=== PATIENT | female | born 2000 | race Caucasian/White ===

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

== ENCOUNTER 2020-11-04 09:59 | Emergency (ER) | payer MEDICAID, OTHER ==
[~2020-11-04 09:59] MED LIST changes: +OMEP20CA16 PO; -OMEP20CA9 PO
[2020-11-04] MEDS ORDERED: DEXAMETHASONE 4 MG TABLET ONE (12:07)
[2020-11-04 12:12] LABS: BILIRUBIN,URINE SMALL (NEG); CLARITY,URINE CLOUDY; COLOR,URINE AMBER; NITRITE,URINE POSITIVE (NEG); PH,URINE 5.5 (<5.0-8.0); PROTEIN,URINE NEGATIVE (NEG-TRACE)
[2020-11-04 12:15] LABS: BACTERIA,URINE MANY /HPF (0-FEW)
[2020-11-04] MEDS ORDERED: DEXAMETHASONE 4 MG TABLET PO ONE (12:15)
[2020-11-04] MEDS ORDERED: ACETAMINOPHEN 325 MG TABLET. PO ONE (12:15)
== END 2020-11-04 12:15 | disposition home or self-care (01) ==
LOC: ER 09:59
DX: O23.41 Unspecified infection of urinary tract in pregnancy, first trimester (principal); J02.9 Acute pharyngitis, unspecified; R05 Cough; Z3A.01 Less than 8 weeks gestation of pregnancy
CPT/HCPCS: 81001; 81025; 87070; 87077; 87086; 87186; 87880; 99283

== ENCOUNTER 2020-11-11 14:09 | Emergency (ER) | payer MEDICAID ==
[~2020-11-11] VITALS: Ht 162.6 cm; Wt 76.0 kg
[2020-11-11 14:42] LABS: BILIRUBIN,URINE NEGATIVE (NEG); CLARITY,URINE CLOUDY; COLOR,URINE YELLOW; NITRITE,URINE POSITIVE (NEG); PH,URINE 5.5 (<5.0-8.0); PROTEIN,URINE NEGATIVE (NEG-TRACE); UROBILINOGEN,URINE 0.2 mg/dL (0.2 mg/dL)
[2020-11-11 14:50] LABS: BACTERIA,URINE MANY /HPF (0-FEW)
[2020-11-11 14:51] LABS: RBC,URINE OCC /HPF (0-2)
[2020-11-11 14:54] VITALS: BP 116/52
[2020-11-11 15:26] LABS: BASO # 0.1 x10^3/uL (0.0-0.2); BASO % 1 % (0-3); EOS # 0.2 x10^3/uL (0.0-0.7); EOS % 3 % (0-3); HEMATOCRIT 39.7 % (36.0-47.0); HEMOGLOBIN 13.5 g/dL (12.0-15.5); LYMPH # 1.9 x10^3/uL (1.0-4.8); LYMPH % 25 % (24-48); MEAN CORPUSCULAR HEMOGLOBIN 30 pg (25-35); MEAN CORPUSCULAR HGB CONC 34 g/dL (31-37); MEAN CORPUSCULAR VOLUME 88 fL (79-100); MONO # 0.5 x10^3/uL (0.0-1.1); MONO % 6 % (0-9); NEUT % 66 % (31-73); PLATELET COUNT 253 x10^3/uL (140-400); RED BLOOD COUNT 4.51 x10^6/uL (3.50-5.40); RED CELL DISTRIBUTION WIDTH 14.2 % (11.5-14.5); WHITE BLOOD COUNT 7.6 x10^3/uL (4.0-11.0)
[2020-11-11 15:37] LABS: CALCIUM 8.7 mg/dL (8.5-10.1); CREATININE 1.2 mg/dL (0.6-1.0); GFR 56.7; POTASSIUM 3.8 mmol/L (3.5-5.1)
[2020-11-11 15:42] LABS: ALBUMIN 3.9 g/dL (3.4-5.0); ALBUMIN/GLOBULIN RATIO 1.2 (1.0-1.7); TOTAL BILIRUBIN 0.4 mg/dL (0.2-1.0); TOTAL PROTEIN 7.2 g/dL (6.4-8.2)
--- NOTE | 2020-11-11 15:52 | PHYS DOC ---
Past Medical History Past Medical History: Other Additional Past Medical Histor: TRISOMY 18 (REGINO OSBORNE APRN) Past Surgical History: No Surgical History (REGINO OSBORNE APRN) Smoking Status: Never Smoker Alcohol Use: None Drug Use: None (REGINO OSBORNE APRN) Attending Signature I have participated in the care of this patient and I have reviewed and agree with all pertinent clinical information above including history, exam, and recommendations. (JENNIFER GUY DO) General Adult EDM: Chief Complaint: VAGINAL PROBLEM HPI: HPI: Patient is a 20 year old female who presents with low intermittent abdominal cramping. She states that 2 to 3 months back she had a miscarriage and was seen at [facility] but never followed up with any care after that. She states that she was here on November 04 and was given antibiotic for UTI. She states she is not currently on any medication at this time. States she is having vaginal itching and pain with sex but she has had that for years. She denies any vag inal bleeding, fever, nausea, vomiting, diarrhea, back pain or abnormal vaginal discharge. She states she would like to be checked for STDs and treated today. She currently has a GENERAL MERCHANDISE SALESPERSON appointment for November 23. At this time she denies any pain. (REGINO OSBORNE EMPLOYMENT SERVICES DIRECTOR) Review of Systems: Review of Systems: Constitutional: Denies fever or chills. [] Eyes: Denies change in visual acuity. [] HENT: Denies nasal congestion or sore throat. [] Respiratory: Denies cough or shortness of breath. [] Cardiovascular: Denies chest pain or edema. [] GI: + abdominal pain, denies nausea, vomiting, bloody stools or diarrhea. [] : Denies dysuria. + Concern for sexually transmitted disease Musculoskeletal: Denies back pain or joint pain. [] Integument: Denies rash. [] Neurologic: Denies headache, focal weakness or sensory changes. [] Endocrine: Denies polyuria or polydipsia. [] Lymphatic: Denies swollen glands. [] Psychiatric: Denies depression or anxiety. [] (REGINO OSBORNE APRN) Heart Score: C/O Chest Pain: No Risk Factors: Risk Factors: DM, Current or recent (<one month) smoker, HTN, HLP, family history of CAD, obesity. Risk Scores: Score 0 - 3: 2.5% MACE over next 6 weeks - Discharge Home Score 4 - 6: 20.3% MACE over next 6 weeks - Admit for Clinical Observation Score 7 - 10: 72.7% MACE over next 6 weeks - Early Invasive Strategies ([facility] DIRECT[facility]) Allergies: Allergies: Allergies Coded Allergies Type Severity Reaction Last Updated Verified No Known Drug Allergies 01/21/18 No ([facility]) Physical Exam: PE: Constitutional: Well developed, well nourished, no acute distress, non-toxic appearance. [] HENT: Normocephalic, atraumatic, bilateral external ears normal, oropharynx moist, no oral exudates, nose normal. [] Eyes: PERRLA, EOMI, conjunctiva normal, no discharge. [] Neck: Normal range of motion, no tenderness, supple, no stridor. [] Cardiovascular:Heart rate regular rhythm, no murmur [] Lungs & Thorax: Bilateral breath sounds clear to auscultation [] Abdomen: Bowel sounds normal, soft, no tenderness, no masses, no pulsatile masses. [] Skin: Warm, dry, no erythema, no rash. [] Back: No tenderness, no CVA tenderness. [] Extremities: No tenderness, no cyanosis, no clubbing, ROM intact, no edema. [] Neurologic: Alert and oriented X 3, normal motor function, normal sensory function, no focal deficits noted. [] Psychologic: Affect normal, judgement normal, mood normal. [] Normal physical exam ([facility]) Current Patient Data: Labs: Laboratory Tests Test 11/11/20 14:30 11/11/20 14:38 11/11/20 15:17 Urine Collection Type Unknown Urine Color Yellow Urine Clarity Cloudy Urine pH 5.5 (<5.0-8.0) Urine Specific [place] >=1.030 (1.000-1.030) Urine Protein Negative mg/dL (NEG-TRACE) Urine Glucose (UA) Negative mg/dL (NEG) Urine Ketones (Stick) Negative mg/dL (NEG) Urine Blood Moderate (NEG) Urine Nitrite Positive (NEG) Urine Bilirubin Negative (NEG) Urine Urobilinogen Dipstick 0.2 mg/dL (0.2 mg/dL) Urine Leukocyte Esterase Moderate (NEG) Urine RBC Occ /HPF (0-2) Urine WBC 11-20 /HPF (0-4) Urine Squamous Epithelial Cells Many /LPF Urine Bacteria Many /HPF (0-FEW) Urine Mucus Marked /LPF POC Urine HCG, Qualitative Hcg positive (Negative) White Blood Count 7.6 x10^3/uL (4.0-11.0) Red Blood Count 4.51 x10^6/uL (3.50-5.40) Hemoglobin 13.5 g/dL (12.0-15.5) Hematocrit 39.7 % (36.0-47.0) Mean Corpuscular Volume 88 fL (79-100) Mean Corpuscular Hemoglobin 30 pg (25-35) Mean Corpuscular Hemoglobin Concent 34 g/dL (31-37) Red Cell Distribution Width 14.2 % (11.5-14.5) Platelet Count 253 x10^3/uL (140-400) Neutrophils (%) (Auto) 66 % (31-73) Lymphocytes (%) (Auto) 25 % (24-48) Monocytes (%) (Auto) 6 % (0-9) Eosinophils (%) (Auto) 3 % (0-3) Basophils (%) (Auto) 1 % (0-3) Neutrophils # (Auto) 5.0 x10^3/uL (1.8-7.7) Lymphocytes # (Auto) 1.9 x10^3/uL (1.0-4.8) Monocytes # (Auto) 0.5 x10^3/uL (0.0-1.1) Eosinophils # (Auto) 0.2 x10^3/uL (0.0-0.7) Basophils # (Auto) 0.1 x10^3/uL (0.0-0.2) Sodium Level 141 mmol/L (136-145) Potassium Level 3.8 mmol/L (3.5-5.1) Chloride Level 106 mmol/L (98-107) Carbon Dioxide Level 25 mmol/L (21-32) Anion Gap 10 (6-14) Blood Urea Nitrogen 11 mg/dL (7-20) Creatinine 1.2 mg/dL (0.6-1.0) H Estimated GFR (Cockcroft-Gault) 56.7 BUN/Creatinine Ratio 9 (6-20) Glucose Level 92 mg/dL (70-99) Calcium Level 8.7 mg/dL (8.5-10.1) Total Bilirubin 0.4 mg/dL (0.2-1.0) Aspartate Amino Transferase (AST) 16 U/L (15-37) Alanine Aminotransferase (ALT) 27 U/L (14-59) Alkaline Phosphatase 81 U/L (46-116) Total Protein 7.2 g/dL (6.4-8.2) Albumin 3.9 g/dL (3.4-5.0) Albumin/Globulin Ratio 1.2 (1.0-1.7) Lipase 76 U/L (73-393) Laboratory Tests 11/11/20 15:17 Laboratory Tests 11/11/20 15:17 Vital Signs: Vital Signs Date Time Temp Pulse Resp B/P (MAP) Pulse Ox O2 Delivery O2 Flow Rate FiO2 11/11/20 14:54 98.4 89 18 116/52 (73) 100 Room Air 98.4 (REGINO OSBORNE APRN) EKG: EKG: [] (REGINO OSBORNE APRN) Radiology/Procedures: Radiology/Procedures: [] Impression: [facility] [id number] [place] [id number] IMAGING REPORT Signed PATIENT: BLADIMIR PHOENIX MACCOUNT: [id number] : 2000 LOCATION: ER AGE: 20 SEX: F EXAM STATUS: REG ER ORD. PHYSICIAN: REGINO OSBORNE APRN REASON: abdominal pain in PROCEDURE: OB <14 WKS W/TV Study: US OB <14 WKS +TV DATE: 11/11/2020 3:45 PM INDICATION: Abdominal pain. COMPARISON: None during this gestation. TECHNIQUE: Transabdominal and transvaginal ultrasonography of the pelvis was performed. Color Doppler and duplex were utilized as appropriate. FINDINGS: The uterus measures 8.5 x 5.3 x 4.4 cm. The right ovary measures 4 x 2.5 x 2.7 cm and the left ovary 2.8 x 3 x 2.2 cm. Small cystic focus within the endometrium measuring 0.27 cm. This would vitaly espond to an estimated gestational age of 5 weeks 0 days. No yolk sac or pole is identified. Endometrial thickness measured at 1.1 cm. Small amount of fluid within the endometrial canal with no associated vascularity. A portion of fluid may be mildly complex. No focal uterine parenchymal abnormality. No complex cyst or mass at either adnexa. Several follicles. Doppler flow is maintained to both ovaries. Small amount of simple appearing free fluid within the deep pelvis. IMPRESSION: Small cystic focus within the endometrium measuring 0.27 cm which may represent a gestational sac. Estimated gestational age would be 5 weeks 0 days. There is a small amount of fluid within the endometrial canal which appears slightly complex and could represent blood products. No findings at either adnexa concerning for an ectopic. Correlate with beta hCG and last menstrual period to help determine if the findings are within normal limits. Overall the result of the exam is indeterminate and short-term follow-up is needed in 2 weeks to determine the trajectory of the . Electronically signed by: DEBO JOHNSON MD (11/11/2020 4:32 PM) [facility] DICTATED and SIGNED BY: DEBO JOHNSON MD DATE: 11/11/20 [id number] 0 (REGINO OSBORNE APRN) Course & Med Decision Making: Course & Med Decision Making Pertinent Labs and Imaging studies reviewed. (See chart for details) See HPI. Alert and oriented x4. Ambulatory with steady gait. Skin pink warm dry. Abdomen is soft and nontender. Speaks in full clear sentences. Pelvic Exam: Scientific Software Engineer present Abdomen: Nontender External Genitalia: Normal Skin Speculum: Normal vaginal mucosa, white cervical discharge Bimanual: No adnexal masses or tenderness, No CMT [] (REGINO OSBORNE APRN) Dragon Disclaimer: Dragon Disclaimer: This electronic medical record was generated, in whole or in part, using a voice recognition dictation system. (REGINO OSBORNE APRN) Departure Departure Impression: Primary Impression: Urinary tract infection Qualified Codes: N39.0 - Urinary tract infection, site not specified Additional Impressions: Qualified Codes: Z3A.01 - Less than 8 weeks gestation of Abdominal pain affecting Disposition: HOME / SELF CARE / HOMELESS Condition: STABLE Referrals: NO PCP (PCP) Patient Instructions: Abdominal Pain During , - Urinary Tract Infection Additional Instructions: Take medication as prescribed until it is done and at with food. Follow-up with your OB doctor as scheduled. Drink plenty of fluids. The chlamydia and gonorrhea that you were treated for today will result in 48 hours and you will be called only if something is positive. Scripts Nitrofurantoin Monohyd/M-Cryst (MACROBID 100 MG CAPSULE) 100 Mg Capsule 1 CAP PO BID for 7 Days, #14 CAP 0 Refills Prov: REGINO OSBORNE APRN 11/11/20 REGINO OSBORNE APRN Nov 11, 2020 15:52 JENNIFER GUY DO Nov 11, 2020 17:02
[2020-11-11] MEDS ORDERED: cefTRIAXone IM 500 MG VIAL. IM ONE (16:00)
[2020-11-11] MEDS ORDERED: AZITHROMYCIN 250 MG TABLET. PO ONE (16:00)
[2020-11-11] MEDS ORDERED: cefTRIAXone IV Push 1 GM VIAL. IVP ONE (16:15)
--- NOTE | 2020-11-11 16:34 | RAD ---
Study: US OB <14 WKS +TV DATE: 11/11/2020 3:45 PM INDICATION: Abdominal pain. COMPARISON: None during this gestation. TECHNIQUE: Transabdominal and transvaginal ultrasonography of the pelvis was performed. Color Doppler and duplex were utilized as appropriate. FINDINGS: The uterus measures 8.5 x 5.3 x 4.4 cm. The right ovary measures 4 x 2.5 x 2.7 cm and the left ovary 2.8 x 3 x 2.2 cm. Small cystic focus within the endometrium measuring 0.27 cm. This would correspond to an estimated ge stational age of 5 weeks 0 days. No yolk sac or pole is identified. Endometrial thickness measu red at 1.1 cm. Small amount of fluid within the endometrial canal with no associated vascularity. A p ortion of fluid may be mildly complex. No focal uterine parenchymal abnormality. No complex cyst or mass at either adnexa. Several follicles . Doppler flow is maintained to both ovaries. Small amount of simple appearing free fluid within the deep pelvis. IMPRESSION: Small cystic focus within the endometrium measuring 0.27 cm which may represent a gestational sac. Es timated gestational age would be 5 weeks 0 days. There is a small amount of fluid within the endometr ial canal which appears slightly complex and could represent blood products. No findings at either ad nexa concerning for an ectopic. Correlate with beta hCG and last menstrual period to help determine i f the findings are within normal limits. Overall the result of the exam is indeterminate and short-te rm follow-up is needed in 2 weeks to determine the trajectory of the . Electronically signed by: DEBO JOHNSON MD (11/11/2020 4:32 PM) [facility]
[2020-11-11] MEDS ORDERED: NITR100C62 PO (16:53)
[2020-11-12 14:12] LABS: GC PROBE Negative (Negative)
== END 2020-11-11 17:52 | disposition home or self-care (01) ==
LOC: ER 14:09
DX: O23.41 Unspecified infection of urinary tract in pregnancy, first trimester (principal); Z3A.08 8 weeks gestation of pregnancy
CPT/HCPCS: 36415; 76801; 76817; 80053; 81001; 81025; 83690; 84702; 85025; 86850; 86900; 86901; 87086; 87491; 87591; 96374; 99284; J0696; Q0111

== ENCOUNTER 2020-11-20 15:30 | Emergency (ER) | payer MEDICAID ==
[~2020-11-20] VITALS: Ht 162.6 cm; Wt 77.2 kg
[2020-11-20 16:00] LABS: BILIRUBIN,URINE NEGATIVE (NEG); CLARITY,URINE CLOUDY; COLOR,URINE YELLOW; NITRITE,URINE NEGATIVE (NEG); PH,URINE 5.5 (<5.0-8.0); PROTEIN,URINE NEGATIVE (NEG-TRACE); UROBILINOGEN,URINE 0.2 mg/dL (0.2 mg/dL)
[2020-11-20] MEDS ORDERED: AZITHROMYCIN 250 MG TABLET. PO ONE (16:00)
[2020-11-20 16:14] LABS: BACTERIA,URINE FEW /HPF (0-FEW); RBC,URINE 0 /HPF (0-2)
--- NOTE | 2020-11-20 16:33 | PHYS DOC ---
Past Medical History Past Medical History: Other Additional Past Medical Histor: TRISOMY 18 Past Surgical History: No Surgical History Smoking Status: Never Smoker Alcohol Use: None Drug Use: None General Adult EDM: Chief Complaint: SEXUALLY TRANSMITTED DISEASE HPI: HPI: Patient is a 20 year old female who presents with approximately 6 weeks and was seen on November 11 and was treated for STDs. Her results came back showing chlamydia. Patient however had sex with the same partner again instead of waiting to have her partner also treated. Patient is here for retreatment of her chlamydia. She denies abdominal pain, nausea, vomiting, diarrhea, fever, back pain, urinary symptoms. Review of Systems: Review of Systems: Constitutional: Denies fever or chills. [] Eyes: Denies change in visual acuity. [] HENT: Denies nasal congestion or sore throat. [] Respiratory: Denies cough or shortness of breath. [] Cardiovascular: Denies chest pain or edema. [] GI: Denies abdominal pain, nausea, vomiting, bloody stools or diarrhea. [] : Denies dysuria. + STD concern [] Musculoskeletal: Denies back pain or joint pain. [] Integument: Denies rash. [] Neurologic: Denies headache, focal weakness or sensory changes. [] Endocrine: Denies polyuria or polydipsia. [] Lymphatic: Denies swollen glands. [] Psychiatric: Denies depression or anxiety. [] Heart Score: C/O Chest Pain: No Risk Factors: Risk Factors: DM, Current or recent (<one month) smoker, HTN, HLP, family history of CAD, obesity. Risk Scores: Score 0 - 3: 2.5% MACE over next 6 weeks - Discharge Home Score 4 - 6: 20.3% MACE over next 6 weeks - Admit for Clinical Observation Score 7 - 10: 72.7% MACE over next 6 weeks - Early Invasive Strategies Current Medications: Current Medications Medications (Trade) Dose Ordered Sig/Levi Start Time Stop Time Status Last Admin Dose Admin Azithromycin (Zithromax) 1,000 mg 1X ONCE 11/20/20 16:00 11/20/20 16:01 DC Allergies: Allergies: Allergies Coded Allergies Type Severity Reaction Last Updated Verified No Known Drug Allergies 01/21/18 No Physical Exam: PE: Constitutional: Well developed, well nourished, no acute distress, non-toxic appearance. [] HENT: Normocephalic, atraumatic, bilateral external ears normal, oropharynx moist, no oral exudates, nose normal. [] Eyes: PERRLA, EOMI, conjunctiva normal, no discharge. [] Neck: Normal range of motion, no tenderness, supple, no stridor. [] Cardiovascular:Heart rate regular rhythm, no murmur [] Lungs & Thorax: Bilateral breath sounds clear to auscultation [] Abdomen: Bowel sounds normal, soft, no tenderness, no masses, no pulsatile masses. [] Skin: Warm, dry, no erythema, no rash. [] Back: No tenderness, no CVA tenderness. [] Extremities: No tenderness, no cyanosis, no clubbing, ROM intact, no edema. [] Neurologic: Alert and oriented X 3, normal motor function, normal sensory function, no focal deficits noted. [] Psychologic: Affect normal, judgement normal, mood normal. Normal physical exam [] Current Patient Data: Labs: Laboratory Tests Test 11/20/20 13:48 11/20/20 15:52 Urine Collection Type Unknown Urine Color Yellow Urine Clarity Cloudy Urine pH 5.5 (<5.0-8.0) Urine Specific [place] >=1.030 (1.000-1.030) Urine Protein Negative mg/dL (NEG-TRACE) Urine Glucose (UA) 250 mg/dL (NEG) Urine Ketones (Stick) Trace mg/dL (NEG) Urine Blood Negative (NEG) Urine Nitrite Negative (NEG) Urine Bilirubin Negative (NEG) Urine Urobilinogen Dipstick 0.2 mg/dL (0.2 mg/dL) Urine Leukocyte Esterase Negative (NEG) Urine RBC 0 /HPF (0-2) Urine WBC 1-4 /HPF (0-4) Urine Squamous Epithelial Cells Many /LPF Urine Bacteria Few /HPF (0-FEW) Urine Mucus Mod /LPF POC Urine HCG, Qualitative Hcg positive (Negative) EKG: EKG: [] Radiology/Procedures: Radiology/Procedures: [] Course & Med Decision Making: Course & Med Decision Making Pertinent Labs and Imaging studies reviewed. (See chart for details) See HPI. Alert and oriented x4. Ambulatory with a steady gait. Speaks in full clear sentences. Abdomen is soft and nontender. No CVA tenderness. Urinalysis does not show a urinary tract infection. She is treated with azithromycin 1 g in the ED. Patient follow-up with her CIRCULATION REPRESENTATIVE. Patient is educated once again do not have sex until your partner is treated and wait at least 10 days after you have been treated and the partner has been treated. Afebrile. Vital signs within normal limits. [] Dragon Disclaimer: Dragon Disclaimer: This electronic medical record was generated, in whole or in part, using a voice recognition dictation system. Departure Departure Impression: Primary Impression: STD (female) Disposition: HOME / SELF CARE / HOMELESS Condition: STABLE Referrals: NO PCP (PCP) Patient Instructions: Sexually Transmitted Diseases (STD) In Additional Instructions: Follow-up with your ob/ lease broker as soon as possible. Wait before having having sexual intercourse with your partner until 10 days after you have both been treated. REGINO OSBORNE APRN Nov 20, 2020 16:33
[2020-11-20 16:49] VITALS: BP 115/56
== END 2020-11-20 16:54 | disposition home or self-care (01) ==
LOC: ER 15:30
DX: O26.892 Other specified pregnancy related conditions, second trimester (principal); A64 Unspecified sexually transmitted disease
CPT/HCPCS: 81001; 81025; 87491; 87591; 99283

== ENCOUNTER 2021-03-18 13:18 | Emergency (ER) | payer MEDICAID ==
[~2021-03-18] VITALS: Ht 162.6 cm; Wt 81.1 kg
[2021-03-18 13:52] LABS: BILIRUBIN,URINE NEGATIVE (NEG); CLARITY,URINE CLOUDY; COLOR,URINE YELLOW; NITRITE,URINE NEGATIVE (NEG); PH,URINE 6.5 (<5.0-8.0); PROTEIN,URINE NEGATIVE (NEG-TRACE); UROBILINOGEN,URINE 0.2 mg/dL (0.2 mg/dL)
[2021-03-18 14:00] LABS: AMPHETAMINE/METHAMPHETAMINE NEG (NEG); BARBITURATES NEG (NEG); BENZODIAZEPINES NEG (NEG); CANNABINOIDS NEG (NEG); COCAINE NEG (NEG); METHADONE NEG (NEG); OPIATES NEG (NEG); PHENCYCLIDINE NEG (NEG)
[2021-03-18 14:09] LABS: BACTERIA,URINE MANY /HPF (0-FEW); RBC,URINE 0 /HPF (0-2); WBC,URINE 20-40 /HPF (0-4)
[2021-03-18 14:27] LABS: BASO % 1 % (0-3); EOS # 0.1 x10^3/uL (0.0-0.7); EOS % 2 % (0-3); HEMATOCRIT 36.8 % (36.0-47.0); HEMOGLOBIN 12.7 g/dL (12.0-15.5); LYMPH # 1.5 x10^3/uL (1.0-4.8); LYMPH % 22 % (24-48); MEAN CORPUSCULAR HEMOGLOBIN 30 pg (25-35); MEAN CORPUSCULAR HGB CONC 34 g/dL (31-37); MEAN CORPUSCULAR VOLUME 87 fL (79-100); MONO # 0.6 x10^3/uL (0.0-1.1); MONO % 9 % (0-9); NEUT # 4.5 x10^3/uL (1.8-7.7); NEUT % 67 % (31-73); PLATELET COUNT 203 x10^3/uL (140-400); RED BLOOD COUNT 4.21 x10^6/uL (3.50-5.40); RED CELL DISTRIBUTION WIDTH 13.8 % (11.5-14.5); WHITE BLOOD COUNT 6.7 x10^3/uL (4.0-11.0)
[2021-03-18 14:54] LABS: CALCIUM 8.4 mg/dL (8.5-10.1); CREATININE 0.9 mg/dL (0.6-1.0); POTASSIUM 4.4 mmol/L (3.5-5.1)
--- NOTE | 2021-03-18 14:59 | RAD ---
EXAM: Obstetrics sonogram. HISTORY: Cramping. TECHNIQUE: Transvaginal sonographic imaging of the pelvis was performed. COMPARISON: 11/11/2020. FINDINGS: The uterus measures 8.2 x 4.9 x 3.6 cm. The endometrial stripe measures 10 mm in thickness. There is a tiny anechoic focus within the endometrial cavity which may be a tiny cyst or early gesta tional sac. This measures less than 2 mm. The ovaries are normal in size and demonstrate normal blood flow. There are multiple bilateral ovarian follicles. There is a 2.0 cm lesion within the right ovar y which may be a complicated corpus luteum cyst. This demonstrate no internal blood flow. There is no pelvic free fluid. IMPRESSION: 1. No evidence of an intrauterine gestational sac. There is a tiny focus of fluid within the endometr ial cavity which may be a cyst or early gestational sac. There is no beta-hCG level for correlation a t the time of dictation. Correlate with serial beta-hCG levels to confirm and appropriate i ncreasing levels. Short-term sonographic follow-up can be performed to confirm viability if levels ar e increasing appropriately. 2. 2.0 cm suspected complicated right corpus luteum cyst. Attention at the time of follow-up can be p erformed to confirm resolution. Electronically signed by: Celina Alba MD (03/18/2021 2:57 PM) [id number]
[2021-03-18 15:00] LABS: ALBUMIN 3.4 g/dL (3.4-5.0); TOTAL BILIRUBIN 0.5 mg/dL (0.2-1.0); TOTAL PROTEIN 6.7 g/dL (6.4-8.2)
[2021-03-18] MEDS ORDERED: CEPH500T PO (16:02)
--- NOTE | 2021-03-18 16:03 | PHYS DOC ---
Past Medical History Past Medical History: Other Additional Past Medical Histor: TRISOMY 18 Past Surgical History: Other Additional Past Surgical Histo: D+C Smoking Status: Never Smoker Alcohol Use: None Drug Use: None General Adult EDM: Chief Complaint: VAGINAL BLEEDING HPI: HPI: Patient is a 20 year old female 6 para 3 with 2 miscarriages presenting today complaining of vaginal bleeding in with slight lower abdominal cramping, symptoms began yesterday. Patient describes the bleeding as spotting. Denies anything specifically exacerbating or relieving her pain. Denies any nausea or vomiting. She states she is roughly 5 weeks Review of Systems: Review of Systems: Constitutional: Denies fever or chills. [] Eyes: Denies change in visual acuity. [] HENT: Denies nasal congestion or sore throat. [] Respiratory: Denies cough or shortness of breath. [] Cardiovascular: Denies chest pain or edema. [] GI: Reports vaginal bleeding in with slight abdominal cramping, denies nausea, vomiting, bloody stools or diarrhea. [] : Denies dysuria. [] Musculoskeletal: Denies back pain or joint pain. [] Integument: Denies rash. [] Neurologic: Denies headache, focal weakness or sensory changes. [] Psychiatric: Denies depression or anxiety. [] Heart Score: C/O Chest Pain: N/A Risk Factors: Risk Factors: DM, Current or recent (<one month) smoker, HTN, HLP, family his tory of CAD, obesity. Risk Scores: Score 0 - 3: 2.5% MACE over next 6 weeks - Discharge Home Score 4 - 6: 20.3% MACE over next 6 weeks - Admit for Clinical Observation Score 7 - 10: 72.7% MACE over next 6 weeks - Early Invasive Strategies Allergies: Allergies: Allergies Coded Allergies Type Severity Reaction Last Updated Verified No Known Drug Allergies 01/21/18 No Physical Exam: PE: Constitutional: Well developed, well nourished, no acute distress, non-toxic appearance. [] HENT: Normocephalic, atraumatic, bilateral external ears normal, oropharynx moist, no oral exudates, nose normal. [] Eyes: PERRLA, EOMI, conjunctiva normal, no discharge. [] Neck: Normal range of motion, no tenderness, supple, no stridor. [] Cardiovascular:Heart rate regular rhythm, no murmur [] Lungs & Thorax: Bilateral breath sounds clear to auscultation [] Abdomen: Bowel sounds normal, soft, no tenderness, no masses, no pulsatile masses. [] Pelvic exam External pelvic appears normal, cervix visualized, closed, no CMT, no blood noted in the vaginal vault. Trace amount of white discharge in the vaginal vault. Skin: Warm, dry, no erythema, no rash. [] Back: No tenderness, no CVA tenderness. [] Extremities: No tenderness, no cyanosis, no clubbing, ROM intact, no edema. [] Neurologic: Alert and oriented X 3, normal motor function, normal sensory function, no focal deficits noted. [] Psychologic: Affect normal, judgement normal, mood normal. [] Current Patient Data: Labs: Laboratory Tests Test 03/18/21 13:25 03/18/21 13:34 03/18/21 14:15 Urine Color Yellow Urine Clarity Cloudy Urine pH 6.5 (<5.0-8.0) Urine Specific [place] >=1.030 (1.000-1.030) Urine Protein Negative mg/dL (NEG-TRACE) Urine Glucose (UA) 100 mg/dL (NEG) Urine Ketones (Stick) Negative mg/dL (NEG) Urine Blood Negative (NEG) Urine Nitrite Negative (NEG) Urine Bilirubin Negative (NEG) Urine Urobilinogen Dipstick 0.2 mg/dL (0.2 mg/dL) Urine Leukocyte Esterase Small (NEG) Urine RBC 0 /HPF (0-2) Urine WBC 20-40 /HPF (0-4) Urine Squamous Epithelial Cells Many /LPF Urine Bacteria Many /HPF (0-FEW) Urine Mucus Marked /LPF Urine Opiates Screen Neg (NEG) Urine Methadone Screen Neg (NEG) Urine Barbiturates Neg (NEG) Urine Phencyclidine Screen Neg (NEG) Urine Amphetamine/Methamphetamine Neg (NEG) Urine Benzodiazepines Screen Neg (NEG) Urine Cocaine Screen Neg (NEG) Urine Cannabinoids Screen Neg (NEG) Urine Ethyl Alcohol Neg (NEG) POC Urine HCG, Qualitative Hcg positive (Negative) White Blood Count 6.7 x10^3/uL (4.0-11.0) Red Blood Count 4.21 x10^6/uL (3.50-5.40) Hemoglobin 12.7 g/dL (12.0-15.5) Hematocrit 36.8 % (36.0-47.0) Mean Corpuscular Volume 87 fL (79-100) Mean Corpuscular Hemoglobin 30 pg (25-35) Mean Corpuscular Hemoglobin Concent 34 g/dL (31-37) Red Cell Distribution Width 13.8 % (11.5-14.5) Platelet Count 203 x10^3/uL (140-400) Neutrophils (%) (Auto) 67 % (31-73) Lymphocytes (%) (Auto) 22 % (24-48) L Monocytes (%) (Auto) 9 % (0-9) Eosinophils (%) (Auto) 2 % (0-3) Basophils (%) (Auto) 1 % (0-3) Neutrophils # (Auto) 4.5 x10^3/uL (1.8-7.7) Lymphocytes # (Auto) 1.5 x10^3/uL (1.0-4.8) Monocytes # (Auto) 0.6 x10^3/uL (0.0-1.1) Eosinophils # (Auto) 0.1 x10^3/uL (0.0-0.7) Basophils # (Auto) 0.0 x10^3/uL (0.0-0.2) Maternal Serum HCG Beta Subunit 286 mIU/mL (0-5) H Sodium Level 137 mmol/L (136-145) Potassium Level 4.4 mmol/L (3.5-5.1) Chloride Level 105 mmol/L (98-107) Carbon Dioxide Level 23 mmol/L (21-32) Anion Gap 9 (6-14) Blood Urea Nitrogen 10 mg/dL (7-20) Creatinine 0.9 mg/dL (0.6-1.0) Estimated GFR (Cockcroft-Gault) 79.0 BUN/Creatinine Ratio 11 (6-20) Glucose Level 80 mg/dL (70-99) Calcium Level 8.4 mg/dL (8.5-10.1) L Total Bilirubin 0.5 mg/dL (0.2-1.0) Aspartate Amino Transferase (AST) 13 U/L (15-37) L Alanine Aminotransferase (ALT) 18 U/L (14-59) Alkaline Phosphatase 66 U/L (46-116) Total Protein 6.7 g/dL (6.4-8.2) Albumin 3.4 g/dL (3.4-5.0) Albumin/Globulin Ratio 1.0 (1.0-1.7) Laboratory Tests 03/18/21 14:15 Laboratory Tests 03/18/21 14:15 Microbiology 03/18/21 Wet Prep - Final, Complete Vital Signs: Vital Signs Date Time Temp Pulse Resp B/P (MAP) Pulse Ox O2 Delivery O2 Flow Rate FiO2 03/18/21 15:05 86 16 108/62 (77) 99 Room Air 03/18/21 13:25 98.9 98.9 EKG: EKG: [] Radiology/Procedures: Radiology/Procedures: []PROCEDURE: OB TRANSVAG EXAM: Obstetrics sonogram. HISTORY: Cramping. TECHNIQUE: Transvaginal sonographic imaging of the pelvis was performed. COMPARISON: 11/11/2020. FINDINGS: The uterus measures 8.2 x 4.9 x 3.6 cm. The endometrial stripe measures 10 mm in thickness. There is a tiny anechoic focus within the endometrial cavity which may be a tiny cyst or early gestational sac. This measures less than 2 mm. The ovaries are normal in size and demonstrate normal blood flow. There are multiple bilateral ovarian follicles. There is a 2.0 cm lesion within the right ovary which may be a complicated corpus luteum cyst. This demonstrate no internal blood flow. There is no pelvic free fluid. IMPRESSION: 1. No evidence of an intrauterine gestational sac. There is a tiny focus of fluid within the endometrial cavity which may be a cyst or early gestational sac. There is no beta-hCG level for correlation at the time of dictation. Correlate with serial beta-hCG levels to confirm and appropriate increasing levels. Short-term sonographic follow-up can be performed to confirm viability if levels are increasing appropriately. 2. 2.0 cm suspected complicated right corpus luteum cyst. Attention at the time of follow-up can be performed to confirm resolution. Electronically signed by: Celina Alba MD (03/18/2021 2:57 PM) [id number] DICTATED and SIGNED BY: CELINA ALBA MD DATE: 03/18/21 [id number] 0 Course & Med Decision Making: Course & Med Decision Making Pertinent Labs and Imaging studies reviewed. (See chart for details) This is a 20-year-old female patient presenting today complaining of vaginal bleeding in that began yesterday. Positive urine hCG, beta-hCG 286. Urine positive for UTI. Wet prep negative. Blood group O+. OB ultrasound no IUP was identified on looking at the beta-hCG this could be an early . Follow-up with OB recommended in the next 1 to 2 days. Pelvic rest also discussed. Patient was also noted for right ovarian cyst. She will follow-up with the [facility] for this. Provided return precautions. Dragon Disclaimer: Dragon Disclaimer: This electronic medical record was generated, in whole or in part, using a voice recognition dictation system. Departure Departure Impression: Primary Impression: Urinary tract infection during Qualified Codes: O23.41 - Unspecified infection of urinary tract in , first trimester Additional Impression: Threatened miscarriage in early Disposition: 01 HOME / SELF CARE / HOMELESS Condition: STABLE Referrals: NO PCP (PCP) EDSON HERNANDEZ MD Follow-up in 1 week Patient Instructions: Threatened Miscarriage, [id number], Urinary Tract Infection Additional Instructions: You were evaluated in the emergency room, your beta-hCG is 286. No intrauterine was identified on ultrasound. We encourage you to follow-up with an [facility] in the next 2 days to have your blood work checked to see if the beta-hCG is going up or down. We encourage you to rest, do not have any intercourse or do any strenuous activities until seen by the [facility] SPECIALIST. Please come back to the ED at any point symptoms worsen. You have urinary tract infection, your prescription for antibiotics was sent to your pharmacy Scripts Cephalexin (CEPHALEXIN) 500 Mg Tablet 1 TAB PO BID, #14 TAB Prov: WALKER HUNTER APRN 03/18/21 WALKER HUNTER APRN Mar 18, 2021 16:03
[2021-03-18 16:07] VITALS: BP 109/54
[2021-03-19 18:12] LABS: GC PROBE Negative (Negative)
== END 2021-03-18 16:15 | disposition home or self-care (01) ==
LOC: ER 13:18
DX: O23.41 Unspecified infection of urinary tract in pregnancy, first trimester (principal); O20.0 Threatened abortion; Z3A.01 Less than 8 weeks gestation of pregnancy
CPT/HCPCS: 76817; 80053; 80307; 81001; 81025; 84702; 85025; 87086; 87491; 87591; 99285; Q0111

== ENCOUNTER 2021-03-23 20:04 | Emergency (ER) | payer MEDICAID ==
[~2021-03-23 20:04] MED LIST changes: +CEPH500T PO
== END 2021-03-23 20:49 | disposition left against medical advice (07) ==
LOC: ER 20:04
DX: R10.9 Unspecified abdominal pain (principal); Z53.21 Procedure and treatment not carried out due to patient leaving prior to being seen by health care provider
CPT/HCPCS: 81025

== ENCOUNTER 2021-05-21 20:40 | Emergency (ER) | payer MEDICAID ==
[~2021-05-21] VITALS: Ht 162.6 cm; Wt 81.4 kg
[2021-05-21 21:22] VITALS: BP 112/62
== END 2021-05-21 21:38 | disposition left against medical advice (07) ==
LOC: ER 20:40
DX: O26.851 Spotting complicating pregnancy, first trimester (principal); R10.31 Right lower quadrant pain; Z3A.13 13 weeks gestation of pregnancy; Z53.21 Procedure and treatment not carried out due to patient leaving prior to being seen by health care provider